=== PATIENT | female | born 1965 | race Caucasian/White ===

== ENCOUNTER 2020-07-27 20:08 | Emergency (ER) | payer OTHER ==
[~2020-07-27] VITALS: Ht 162.6 cm; Wt 105.2 kg
[~2020-07-27 20:08] MED LIST: CLON1TAB PO; CYAN100050 IJ; LAMO100T16 PO; METF500T PO; PANT40EC56 PO; SERT50TA PO
[2020-07-27 20:19] VITALS: BP 147/66
[2020-07-27] MEDS ORDERED: KETOROLAC 30 MG/ML VIAL IM ONE (20:35)
[2020-07-27] MEDS ORDERED: HYDROcodone/APAP 5/325 MG 1 TAB TAB PO ONE (20:35)
[2020-07-27 21:13] VITALS: BP 147/66
== END 2020-07-27 21:13 | disposition home or self-care (01) ==
LOC: MED 20:08
DX: M77.11 Lateral epicondylitis, right elbow (principal); M77.8 Other enthesopathies, not elsewhere classified; E11.9 Type 2 diabetes mellitus without complications; F32.9 Major depressive disorder, single episode, unspecified; Z79.84 Long term (current) use of oral hypoglycemic drugs; Z79.899 Other long term (current) drug therapy
CPT/HCPCS: 73080; 96372; 99283; J1885

== ENCOUNTER 2020-08-24 20:40 | Emergency (ER) | payer OTHER ==
[~2020-08-24] VITALS: Ht 162.6 cm; Wt 106.1 kg
[2020-08-24 20:50] VITALS: BP 138/65
--- NOTE | 2020-08-24 20:53 | NUR ---
TO LOBBY A/W BED, AMBULATORY
[2020-08-24 20:55] VITALS: BP 138/65
--- NOTE | 2020-08-24 21:17 | NUR ---
PATIENT CALLED TO BE SEEN BY [facility], NO RESPONSE
--- NOTE | 2020-08-24 21:25 | NUR ---
CALLED FOR THE SECOND TIME , NO RESPONSE
--- NOTE | 2020-08-24 21:43 | NUR ---
CALLED FOR THE THIRD TIME , NO RESPONSE
== END 2020-08-24 21:17 | disposition left against medical advice (07) ==
LOC: MED 20:40
DX: H92.02 Otalgia, left ear (principal); Z53.21 Procedure and treatment not carried out due to patient leaving prior to being seen by health care provider

== ENCOUNTER 2023-08-20 01:51 | Emergency (ER) | payer OTHER ==
[~2023-08-20] VITALS: Ht 162.6 cm; Wt 112.0 kg
[~2023-08-20 01:51] MED LIST changes: +METF-346 PO; -METF500T PO
[2023-08-20 01:55] VITALS: BP 124/53; PULSE 81; RESP 18; TEMP 98.4; O2SAT 96
[2023-08-20 02:09] VITALS: O2SAT 96
[2023-08-20] MEDS ORDERED: predniSONE 20 MG TAB PO ONE (02:20)
[2023-08-20 02:35] LABS: FLU A ANTIGEN negative (NEGATIVE); FLU B ANTIGEN NEGATIVE (NEGATIVE)
[2023-08-20] MEDS ORDERED: ALBU0.0912 INH (02:52)
[2023-08-20] MEDS ORDERED: PRED20TA5 PO (02:52)
[2023-08-20] MEDS ORDERED: AZIT250T4 PO (02:52)
[2023-08-20 02:53] VITALS: O2SAT 96
[2023-08-21] MEDS ORDERED: MUC600 PO (10:11)
== END 2023-08-20 02:57 | disposition home or self-care (01) ==
LOC: MED 01:51
DX: J02.9 Acute pharyngitis, unspecified (principal); Z20.822 Contact with and (suspected) exposure to COVID-19; Z79.899 Other long term (current) drug therapy
CPT/HCPCS: 71046; 87426; 87804; 99284; J7512; Q0092

== ENCOUNTER 2023-08-21 07:44 | Emergency (ER) | payer OTHER ==
[~2023-08-21] VITALS: Ht 162.6 cm; Wt 113.4 kg
[~2023-08-21 07:44] MED LIST changes: +ALBU0.0912 INH; +AZIT250T4 PO; +PRED20TA5 PO
[2023-08-21 08:14] VITALS: BP 129/67; PULSE 74; RESP 18; TEMP 97.7; O2SAT 97
[2023-08-21 09:14] LABS: BASOPHILS # (AUTO) 0.1 K/uL (0.00-0.22); BASOPHILS % (AUTO) 0.6 % (0.0-2.0); EOSINOPHILS # (AUTO) 0.2 K/uL (0-0.4); EOSINOPHILS % (AUTO) 1.3 % (0.0-4.0); HEMATOCRIT 36.3 % (36-48); HEMOGLOBIN 11.8 g/dL (12.0-16.0); LYMPHOCYTES # (AUTO) 2.4 K/uL (2.5-16.5); LYMPHOCYTES % (AUTO) 19.7 % (20.5-51.1); MEAN CORPUSCULAR HEMOGLOBIN 29 pg (27-31); MEAN CORPUSCULAR HGB CONC 33 g/dL (33-37); MEAN CORPUSCULAR VOLUME 89.6 fL (80-94); MONOCYTES # (AUTO) 1.1 K/uL (0.8-1.0); MONOCYTES % (AUTO) 8.7 % (1.7-9.3); NEUTROPHILS # (AUTO) 8.5 K/uL (1.8-7.7); NEUTROPHILS % (AUTO) 69.7 % (42.2-75.2); PLATELET COUNT (AUTO) 415 K/uL (140-450); RED BLOOD CELL COUNT(AUTO) 4.05 MIL/uL (4.20-5.40); RED CELL DISTRIBUTION WIDTH 14.9 % (11.6-13.7); WHITE BLOOD COUNT (AUTO) 12.2 K/uL (4.8-10.8)
[2023-08-21 09:47] LABS: ALBUMIN 3.1 g/dL (3.4-5.0); ANION GAP 8.9 (8-16); CALCIUM 8.2 mg/dL (8.5-10.1); CARBON DIOXIDE 29.3 mmol/L (21-32); CREATININE 0.7 mg/dL (0.6-1.3); POTASSIUM 4.2 mmol/L (3.5-5.1); TOTAL BILIRUBIN 0.3 mg/dL (0.0-1.0); TOTAL PROTEIN, SERUM 7.2 g/dL (6.4-8.2)
[2023-08-21] MEDS ORDERED: KETOROLAC 30 MG/ML VIAL IM ONE (10:10)
[2023-08-21] MEDS ORDERED: MUC600 PO (10:11)
[2023-08-21 10:29] VITALS: BP 120/70; PULSE 75; RESP 12; TEMP 98; O2SAT 99
== END 2023-08-21 10:29 | disposition home or self-care (01) ==
LOC: MED 07:44
DX: J06.9 Acute upper respiratory infection, unspecified (principal); R07.89 Other chest pain; E11.9 Type 2 diabetes mellitus without complications; I10 Essential (primary) hypertension; Z79.4 Long term (current) use of insulin; Z79.899 Other long term (current) drug therapy
CPT/HCPCS: 36415; 71045; 80053; 83880; 84484; 85025; 93005; 96372; 99285; J1885